=== PATIENT | female | born 1950 ===

== ENCOUNTER 2017-06-12 13:36 | Outpatient (CLI) | payer MEDICARE, MEDICAID ==
[2017-06-12 13:50] VITALS: BP 126/73
[2017-06-12] MEDS ORDERED: ISOSORBIDE MONO60 M1 PO (15:34)
[2017-06-12] MEDS ORDERED: NORCO 5-325 TA1 EACH ORAL (15:34)
[2017-06-12] MEDS ORDERED: PLAVIX75 MG ORAL (15:34)
[2017-06-12] MEDS ORDERED: METOPROLOL TART50 MG ORAL (15:34)
[2017-06-12] MEDS ORDERED: LOTENSIN20 MG ORAL (15:34)
[2017-06-12] MEDS ORDERED: COLACE100 MG ORAL (15:34)
[2017-06-12] MEDS ORDERED: VITAMIN D5000 UNI1 PO (15:34)
[2017-06-12] MEDS ORDERED: SPIRONOLACTONE25 MG ORAL (15:34)
[2017-06-12] MEDS ORDERED: GEODON20 MG ORAL (15:34)
[2017-06-12] MEDS ORDERED: DUONEB 0.5-3(2.53 ML HHN (15:34)
[2017-06-12] MEDS ORDERED: DIOVAN80 MG ORAL (15:34)
[2017-06-12] MEDS ORDERED: NEURONTIN800 MG ORAL (15:34)
[2017-06-12] MEDS ORDERED: WELLBUTRIN XL150 MG ORAL (15:34)
[2017-06-12] MEDS ORDERED: ZOLPIDEM TARTRAT5 MG ORAL (15:34)
[2017-06-12] MEDS ORDERED: HYDRALAZINE HCL10 MG ORAL (15:34)
[2017-06-12] MEDS ORDERED: MIRALAX17 G2 ORAL (15:34)
[2017-06-12] MEDS ORDERED: ROPINIROLE HCL2 MG PO (15:34)
[2017-06-12] MEDS ORDERED: LEVOFLOXACIN500 MG ORAL (15:34)
[2017-06-12] MEDS ORDERED: BENADRYL25 M3 PO (15:34)
[2017-06-12] MEDS ORDERED: ASPIRIN EC81 MG ORAL (15:34)
[2017-06-12] MEDS ORDERED: DIAZEPAM5 MG ORAL (16:04)
[2017-06-12] MEDS ORDERED: ZOFRAN8 MG ORAL (16:04)
[2017-06-12] MEDS ORDERED: CHLORDIAZEPO-A1 EACH PO (16:04)
[2017-06-12] MEDS ORDERED: DOCUSATE SODIU100 MG ORAL (16:04)
[2017-06-12] MEDS ORDERED: PANTOPRAZOLE SO40 MG ORAL (16:04)
[2017-06-12] MEDS ORDERED: MIRTAZAPINE15 M3 ORAL (16:04)
[2017-06-12] MEDS ORDERED: GABAPENTIN100 MG ORAL (16:04)
[2017-06-12] MEDS ORDERED: PRAVASTATIN SOD10 M1 ORAL (16:04)
[2017-06-12] MEDS ORDERED: METHOCARBAMOL750 MG ORAL (16:04)
[2017-06-12] MEDS ORDERED: LEXAPRO10 MG ORAL (16:04)
[2017-06-12] MEDS ORDERED: FISH OIL CAP1000 MG ORAL (16:04)
[2017-06-12] MEDS ORDERED: RANITIDINE HCL150 MG ORAL (16:04)
[2017-06-12] MEDS ORDERED: GABAPENTIN300 MG ORAL (16:04)
[2017-06-12] MEDS ORDERED: CARAFATE1 G1 ORAL (16:04)
[2017-06-12] MEDS ORDERED: ATENOLOL50 MG ORAL (16:04)
[2017-06-12] MEDS ORDERED: TRAMADOL HCL100 M2 ORAL (16:04)
[2017-06-12] MEDS ORDERED: VOLTAREN100 G1 TP (16:04)
[2017-06-12] MEDS ORDERED: RESTASIS1 EACH BOTH EYES (16:04)
[2017-06-12] MEDS ORDERED: FLECTOR1 EACH TP (16:04)
--- NOTE | 2017-06-12 16:08 | GI Initial Consult Note ---
LiliDeana Bladimir N.P. 06/12/17 1608: History of Present Illness General Date patient seen: Jun 12, 2017 Time patient seen: 15:50 Referring physician: BRYANNA Reason for Consultation: SEVERE GERD Present Illness HPI 67 year old female patient referred by Dr. Riley for evaluation of epigastric pain, severe GERD. The patient presents today with c/o of GERD, constipation, weight loss, poor appetite due to abdominal pain and N/V 3 months after her spinal fusion. She has stated she had multiple upper endoscopies performed at [facility] with unremarkable findings. In addition, she takes multiple medications for her abdominal pain, but cannot find any relief. Her last colonoscopy has been 5+ years. No signs of abuse or neglect. Patient is not fall risk. Home Meds Reported Medications Tramadol Hcl (TRAMADOL HCL) 100 Mg Tab.er.24h, 50 MG ORAL DAILY, TAB 06/12/17 Sucralfate* (CARAFATE*) 1 Gm Tablet, 1 GM ORAL FOUR TIMES A DAY, TAB 06/12/17 Cyclosporine (RESTASIS) 1 Each Droperette, 1 DROP BOTH EYES EVERY 12 HOURS, #1 EA 0 Refills 06/12/17 Ranitidine Hcl* (ZANTAC*) 150 Mg Tablet, 150 MG ORAL DAILY, TAB 06/12/17 Pravastatin Sod (PRAVASTATIN SOD) 10 Mg Tablet, 10 MG ORAL BEDTIME, TAB 06/12/17 Ondansetron Hcl* (ZOFRAN*) 8 Mg Tablet, 8 MG ORAL Q6H PRN, #4 TAB 0 Refills 06/12/17 Mirtazapine* (MIRTAZAPINE*) 15 Mg Tablet, 15 MG ORAL BEDTIME, TAB 06/12/17 Methocarbamol* (METHOCARBAMOL*) 750 Mg Tablet, 750 MG ORAL FOUR TIMES A DAY PRN , #20 TAB 0 Refills 06/12/17 Escitalopram Oxalate* (LEXAPRO*) 10 Mg Tablet, 10 MG ORAL DAILY, TAB 06/12/17 Gabapentin* (GABAPENTIN*) 300 Mg Capsule, 300 MG ORAL BEDTIME, CAP 06/12/17 Gabapentin* (GABAPENTIN*) 100 Mg Capsule, 100 MG ORAL THREE TIMES A DAY, CAP 06/12/17 Fish Oil (Fish Oil 1,000 mg Capsule) 1 Each Capsule, 1000 MG ORAL DAILY, CAP 06/12/17 Docusate Sodium* (DOCUSATE SODIUM*) 100 Mg Capsule, 100 MG ORAL THREE TIMES A DAY, CAP 06/12/17 Diclofenac Epolamine (Flector) 1 Each Patch.td12, 1 EACH TP, PATCH 06/12/17 Diclofenac Sodium (VOLTAREN) Unknown Strength Gel..gram., TP, GM 06/12/17 Diazepam* (DIAZEPAM*) 5 Mg Tablet, 5 MG ORAL Q6H PRN, #30 TAB 0 Refills 06/12/17 Pantoprazole* (PANTOPRAZOLE*) 40 Mg Tablet.dr, 40 MG ORAL DAILY, TAB 06/12/17 Amitrip Hcl/Chlordiazepoxide (CHLORDIAZEPO-AMITRIPTYL 5-12.5) 1 Each Tablet, 1 EACH PO, TAB 06/12/17 Atenolol* (TENORMIN*) 50 Mg Tablet, 50 MG ORAL DAILY, TAB 06/12/17 Med list reviewed/reconciled: Yes Allergies: Coded Allergies: ACETAMINOPHEN (Unverified Allergy, Severe, 06/12/17) CELECOXIB (Unverified Allergy, Severe, 06/12/17) DICLOFENAC (Unverified Allergy, Severe, 06/12/17) IBUPROFEN (Unverified Allergy, Severe, 06/12/17) LATEX (Unverified Allergy, Severe, 06/12/17) red and itching OXYCODONE (Unverified Allergy, Severe, 06/12/17) PREGABALIN (Unverified Allergy, Severe, 06/12/17) ROSUVASTATIN (Unverified Allergy, Severe, 06/12/17) FENTANYL (Verified Allergy, Unknown, 06/12/17) HYDROMORPHONE (Verified Allergy, Unknown, 06/12/17) TRAMADOL (Verified Allergy, Unknown, 06/12/17) Patient History History Provided By: Patient, Medical Record PMH Narrative GERD Depression HTN IBS constipation HLD Past Surgical History: Spinal Fusion 2017 Family History Narrative DM Heart Disease HTN Social History: Denies: smoking, alcohol use, drug use, other Review of Systems All Other Systems: negative except mentioned in HPI Physical Exam 97.7 BP 126/73 P 55 97 RA WT 157.4 lbs Sp02 EP Interpretation: reviewed, normal General Appearance: well appearing, no apparent distress, alert Head: normocephalic EENT: PERRL/EOMI, normal ENT inspection Neck: supple Respiratory: normal breath sounds, no respiratory distress Cardiovascular: normal rate Gastrointestinal: normal inspection, non tender, soft, normal bowel sounds, non -distended Rectal: deferred Genitourinary: no CVA tenderness Musculoskeletal: normal inspection, back normal Neurologic: normal inspection, alert, oriented x3, responsive Psychiatric: normal inspection, judgement/insight normal, memory normal Skin: normal inspection, normal color, no rash, warm/dry, palpation normal, well hydrated Lymphatic: normal inspection, no adenopathy GI: Plan Problems: (1) GERD (gastroesophageal reflux disease) (2) Weight loss (3) Nausea & vomiting (4) H/O spinal fusion (5) IBS (irritable bowel syndrome) (6) Depression (7) HTN (hypertension) Plan Protonix BID add baclofen dc creon and carafate RTC x 2 weeks Needs colonoscopy when stable Seen with Dr. Abel. Thank you for this patient referral. NERY ABEL 06/13/17 1021: History of Present Illness Present Illness Home Meds Reported Medications Tramadol Hcl (TRAMADOL HCL) 100 Mg Tab.er.24h, 50 MG ORAL DAILY, TAB 06/12/17 Sucralfate* (CARAFATE*) 1 Gm Tablet, 1 GM ORAL FOUR TIMES A DAY, TAB 06/12/17 Cyclosporine (RESTASIS) 1 Each Droperette, 1 DROP BOTH EYES EVERY 12 HOURS, #1 EA 0 Refills 06/12/17 Ranitidine Hcl* (ZANTAC*) 150 Mg Tablet, 150 MG ORAL DAILY, TAB 06/12/17 Pravastatin Sod (PRAVASTATIN SOD) 10 Mg Tablet, 10 MG ORAL BEDTIME, TAB 06/12/17 Ondansetron Hcl* (ZOFRAN*) 8 Mg Tablet, 8 MG ORAL Q6H PRN, #4 TAB 0 Refills 06/12/17 Mirtazapine* (MIRTAZAPINE*) 15 Mg Tablet, 15 MG ORAL BEDTIME, TAB 06/12/17 Methocarbamol* (METHOCARBAMOL*) 750 Mg Tablet, 750 MG ORAL FOUR TIMES A DAY PRN , #20 TAB 0 Refills 06/12/17 Escitalopram Oxalate* (LEXAPRO*) 10 Mg Tablet, 10 MG ORAL DAILY, TAB 06/12/17 Gabapentin* (GABAPENTIN*) 300 Mg Capsule, 300 MG ORAL BEDTIME, CAP 06/12/17 Gabapentin* (GABAPENTIN*) 100 Mg Capsule, 100 MG ORAL THREE TIMES A DAY, CAP 06/12/17 Fish Oil (Fish Oil 1,000 mg Capsule) 1 Each Capsule, 1000 MG ORAL DAILY, CAP 06/12/17 Docusate Sodium* (DOCUSATE SODIUM*) 100 Mg Capsule, 100 MG ORAL THREE TIMES A DAY, CAP 06/12/17 Diclofenac Epolamine (Flector) 1 Each Patch.td12, 1 EACH TP, PATCH 06/12/17 Diclofenac Sodium (VOLTAREN) Unknown Strength Gel..gram., TP, GM 06/12/17 Diazepam* (DIAZEPAM*) 5 Mg Tablet, 5 MG ORAL Q6H PRN, #30 TAB 0 Refills 06/12/17 Pantoprazole* (PANTOPRAZOLE*) 40 Mg Tablet.dr, 40 MG ORAL DAILY, TAB 06/12/17 Amitrip Hcl/Chlordiazepoxide (CHLORDIAZEPO-AMITRIPTYL 5-12.5) 1 Each Tablet, 1 EACH PO, TAB 06/12/17 Atenolol* (TENORMIN*) 50 Mg Tablet, 50 MG ORAL DAILY, TAB 06/12/17 Allergies: Coded Allergies: ACETAMINOPHEN (Unverified Allergy, Severe, 06/12/17) CELECOXIB (Unverified Allergy, Severe, 06/12/17) DICLOFENAC (Unverified Allergy, Severe, 06/12/17) IBUPROFEN (Unverified Allergy, Severe, 06/12/17) LATEX (Unverified Allergy, Severe, 06/12/17) red and itching OXYCODONE (Unverified Allergy, Severe, 06/12/17) PREGABALIN (Unverified Allergy, Severe, 06/12/17) ROSUVASTATIN (Unverified Allergy, Severe, 06/12/17) FENTANYL (Verified Allergy, Unknown, 06/12/17) HYDROMORPHONE (Verified Allergy, Unknown, 06/12/17) TRAMADOL (Verified Allergy, Unknown, 06/12/17) GI: Plan Plan The patient was seen and examined at bedside and all new and available data was reviewed in the patients chart. I agree with the above findings, impression and plan. (Patient seen earlier today. Signature stamp does not reflect patient encounter time.). - MD Lili Vallejo Anh Bladimir oMrales Jun 12, 2017 16:08 NERY ABEL Jun 13, 2017 10:21
== END 2017-06-12 14:10 | disposition home or self-care (01) ==
LOC: PAN 13:36
DX: K21.9 Gastro-esophageal reflux disease without esophagitis (principal); R63.4 Abnormal weight loss; R11.2 Nausea with vomiting, unspecified; Z98.1 Arthrodesis status; K58.9 Irritable bowel syndrome, unspecified; F32.9 Major depressive disorder, single episode, unspecified; I10 Essential (primary) hypertension; E78.5 Hyperlipidemia, unspecified; Z83.3 Family history of diabetes mellitus; Z82.49 Family history of ischemic heart disease and other diseases of the circulatory system; Z88.6 Allergy status to analgesic agent; Z91.040 Latex allergy status; Z88.8 Allergy status to other drugs, medicaments and biological substances; K59.00 Constipation, unspecified
CPT/HCPCS: 99213

== ENCOUNTER 2017-07-01 10:20 | Outpatient (CLI) | payer MEDICARE, MEDICAID ==
[~2017-07-01 10:20] MED LIST: ASPIRIN EC81 MG ORAL; ATENOLOL50 MG ORAL; BENADRYL25 M3 PO; CARAFATE1 G1 ORAL; CHLORDIAZEPO-A1 EACH PO; COLACE100 MG ORAL; DIAZEPAM5 MG ORAL; DIOVAN80 MG ORAL; DOCUSATE SODIU100 MG ORAL; DUONEB 0.5-3(2.53 ML HHN; FISH OIL CAP1000 MG ORAL; FLECTOR1 EACH TP; GABAPENTIN100 MG ORAL; GABAPENTIN300 MG ORAL; GEODON20 MG ORAL; HYDRALAZINE HCL10 MG ORAL; ISOSORBIDE MONO60 M1 PO; LEVOFLOXACIN500 MG ORAL; LEXAPRO10 MG ORAL; LOTENSIN20 MG ORAL; METHOCARBAMOL750 MG ORAL; METOPROLOL TART50 MG ORAL; MIRALAX17 G2 ORAL; MIRTAZAPINE15 M3 ORAL; NEURONTIN800 MG ORAL; NORCO 5-325 TA1 EACH ORAL; PANTOPRAZOLE SO40 MG ORAL; PLAVIX75 MG ORAL; PRAVASTATIN SOD10 M1 ORAL; RANITIDINE HCL150 MG ORAL; RESTASIS1 EACH BOTH EYES; ROPINIROLE HCL2 MG PO; SPIRONOLACTONE25 MG ORAL; TRAMADOL HCL100 M2 ORAL; VITAMIN D5000 UNI1 PO; VOLTAREN100 G1 TP; WELLBUTRIN XL150 MG ORAL; ZOFRAN8 MG ORAL; ZOLPIDEM TARTRAT5 MG ORAL
[2017-07-01 10:46] VITALS: BP 133/76
[2017-07-01] MEDS ORDERED: MIRALAX17 G2 ORAL (10:49)
[2017-07-01] MEDS ORDERED: MAALOX MAXIMUM355 M1 PO (14:23)
[2017-07-01] MEDS ORDERED: ATIVAN1 MG ORAL (14:23)
[2017-07-01] MEDS ORDERED: AMERICAINE28 G1 TP (14:29)
--- NOTE | 2017-07-01 16:45 | GI Progress Note ---
Assessment/Plan Problems: (1) Nausea & vomiting ICD Codes: R11.2 - Nausea with vomiting, unspecified SNOMED: 00704655 (2) IBS (irritable bowel syndrome) ICD Codes: K58.9 - Irritable bowel syndrome without diarrhea SNOMED: 93807557 (3) Weight loss ICD Codes: R63.4 - Abnormal weight loss SNOMED: 03693759, 766721073 (4) H/O spinal fusion ICD Codes: Z98.1 - Arthrodesis status SNOMED: 73743061, [id number] (5) GERD (gastroesophageal reflux disease) ICD Codes: K21.9 - Gastro-esophageal reflux disease without esophagitis SNOMED: 496853002 Status: stable Status Narrative Seen with Dr. Moraes. Assessment/Plan patient have daily BM's weight loss of 8-10 lbs per patient has had CT done at [facility] [place] patient send to ER for anxiety carafate librax refusing colonoscopy at this time, recommend when stable. Subjective Subjective epigastric pain constipation, not using miralax much N/V decreased in appetite taking protonix 40mg BID couldn't tolerate baclofen Objective Last 24 Hour Vital Signs Date Time Temp Pulse Resp B/P (MAP) Pulse Ox O2 Delivery O2 Flow Rate FiO2 07/01/17 10:46 97.4 62 16 133/76 97 97.4 General Appearance: WD/WN, no apparent distress, alert Cardiovascular: normal rate Respiratory/Chest: normal breath sounds, no respiratory distress Abdominal Exam: normal bowel sounds, non tender, soft Extremities: normal range of motion, non-tender Deana Pearson N.PDali Jul 01, 2017 16:45
== END 2017-07-01 10:52 | disposition home or self-care (01) ==
LOC: PAN 10:20
DX: K21.9 Gastro-esophageal reflux disease without esophagitis (principal); Z98.1 Arthrodesis status; R63.4 Abnormal weight loss; K58.9 Irritable bowel syndrome, unspecified; R11.2 Nausea with vomiting, unspecified; K59.00 Constipation, unspecified
CPT/HCPCS: 99213

== ENCOUNTER 2017-07-01 11:24 | Emergency (ER) | payer MEDICARE, MEDICAID ==
[~2017-07-01] VITALS: Ht 162.6 cm; Wt 72.6 kg
[2017-07-01] MEDS ORDERED: Mylanta II UD 30ml ORAL ONE (12:00)
[2017-07-01] MEDS ORDERED: Sodium Chloride 500ML 550 ML IV SCH (12:00)
[2017-07-01] MEDS ORDERED: Hydromorphone 0.5mg/0.5ml inj IVP ONE (12:00)
[2017-07-01 12:11] LABS: APPEARANCE,URINE CLEAR; BILIRUBIN, URINE NEGATIVE (NEGATIVE); COLOR,URINE PALE YELLOW; GLUCOSE, URINE (UA) NEGATIVE (NEGATIVE); KETONES,URINE NEGATIVE (NEGATIVE); LEUKOCYTE ESTERASE ,URINE NEGATIVE (NEGATIVE); NITRITE,URINE NEGATIVE (NEGATIVE); PH,URINE 7 (4.5-8.0); PROTEIN,URINE NEGATIVE (NEGATIVE); UROBILINOGEN,URINE NORMAL MG/DL (0.0-1.0)
[2017-07-01 12:50] LABS: BASOPHILS % (AUTO) 0.7 % (0.0-2.0); EOSINOPHILS % (AUTO) 0.4 % (0.0-3.0); HEMOGLOBIN 14.6 G/DL (12.0-16.0); LYMPHOCYTES % (AUTO) 36.9 % (20.0-45.0); MEAN CORPUSCULAR VOLUME 88 FL (80-99); MONOCYTES % (AUTO) 7.2 % (1.0-10.0); NEUTROPHILS % (AUTO) 54.7 % (45.0-75.0); PLATELET COUNT 247 K/UL (150-450); RED BLOOD COUNT 4.76 M/UL (4.20-5.40); RED CELL DISTRIBUTION WIDTH 11.1 % (11.6-14.8); WHITE BLOOD COUNT 6.6 K/UL (4.8-10.8)
[2017-07-01 12:55] LABS: ANION GAP 7 mmol/L (5-15); BLOOD UREA NITROGEN 9 mg/dL (7-18); CALCIUM 9.4 MG/DL (8.5-10.1); CARBON DIOXIDE 27 MMOL/L (21-32); CHLORIDE 100 MMOL/L (98-107); CREATININE 0.8 MG/DL (0.55-1.30); POTASSIUM 3.9 MMOL/L (3.5-5.1); SODIUM 134 MMOL/L (136-145)
[2017-07-01 13:00] LABS: ALANINE AMINOTRANSFERASE 21 U/L (12-78); ALBUMIN 3.7 G/DL (3.4-5.0); ALBUMIN/GLOBULIN RATIO 1.2 (1.0-2.7); ALKALINE PHOSPHATASE 59 U/L (46-116); ASPARTATE AMINO TRANSFERASE 17 U/L (15-37); BILIRUBIN,TOTAL 0.5 MG/DL (0.2-1.0)
[2017-07-01 13:37] VITALS: BP 110/63
--- NOTE | 2017-07-01 14:19 | Emergency Room Report ---
History of Present Illness General Chief Complaint: Abdominal Pain Source: Patient, Medical Record Present Illness HPI Patient presents with anxiety and difficulty eating and swallowing. She was seen at Dr. Moraes's office and sent over here. She asked for a shot to help her with her anxiety and he said he didn't have anything that could help. She' s complaining about abdominal pain. The abdominal pain is epigastric. She states she has not been eating because of the anxiety and pain. Pain rated 8/10 , burning, epigastric and not radiating. Dr. Moraes states she take protonix twice a day. She denies melena or rectal bleeding. No dysuria. Because she is not eating, she feels weak. Although she lists Dilaudid in her allergies, she is asking for this saying that morphine will not work. The patient just was hospitalized at [facility] and had a CT abdomen done that was reportedly normal. She feels a burning in her stomach area and has pain. There is no vomiting or diarrhea. She moves her bowels in the morning. She has painful hemorrhoids. Per her meds she had been on NSAIDs. She is unclear what she currently takes. In the past she was also treated with anti-depressants. She is not suicidal. Also in the past she had a prescription for Valium. She has none now. Dr. Moraes was trying to arrange for outpatient psychiatric evaluation, however has been unable to do so. No chest pain, dyspnea, rashes, joint pain, headache. Allergies: Coded Allergies: ACETAMINOPHEN (Unverified Allergy, Severe, 06/12/17) CELECOXIB (Unverified Allergy, Severe, 06/12/17) DICLOFENAC (Unverified Allergy, Severe, 06/12/17) IBUPROFEN (Unverified Allergy, Severe, 06/12/17) LATEX (Unverified Allergy, Severe, 06/12/17) red and itching OXYCODONE (Unverified Allergy, Severe, 06/12/17) PREGABALIN (Unverified Allergy, Severe, 06/12/17) ROSUVASTATIN (Unverified Allergy, Severe, 06/12/17) FENTANYL (Verified Allergy, Unknown, 06/12/17) HYDROMORPHONE (Verified Allergy, Unknown, 06/12/17) TRAMADOL (Verified Allergy, Unknown, 06/12/17) Patient History Past Medical History: see triage record Social History: Denies: smoking, alcohol use, drug use Social History Narrative came by [employer], lives by herself Reviewed Nursing Documentation: PMH: Agreed; PSxH: Agreed Nursing Documentation-PMH Past Medical History: No History, Except For Hx Cardiac Problems: Yes Hx Hypertension: Yes Hx Cancer: No Hx Gastrointestinal Problems: Yes Hx Neurological Problems: No Review of Systems All Other Systems: negative except mentioned in HPI Physical Exam Vital Signs Date Time Temp Pulse Resp B/P (MAP) Pulse Ox O2 Delivery O2 Flow Rate FiO2 07/01/17 11:29 97.9 61 18 133/86 95 Room Air 97.9 Sp02 EP Interpretation: reviewed, normal General Appearance: well appearing, no apparent distress, GCS 15, other - anxious Head: normocephalic Eyes: bilateral eye normal inspection, bilateral eye PERRL ENT: moist mucus membranes Neck: supple Respiratory: lungs clear, normal breath sounds Cardiovascular #1: regular rate, rhythm Cardiovascular #2: 2+ radial (R) Gastrointestinal: normal inspection, normal bowel sounds, no mass, non- distended, no guarding, no rebound, tenderness - epigastric Musculoskeletal: back normal, gait/station normal, normal range of motion Neurologic: alert, oriented x3, grossly normal Psychiatric: no suicidal/homicidal ideation, anxious Skin: normal inspection, warm/dry Medical Decision Making Diagnostic Impression: Primary Impression: Anxiety Additional Impression: Abdominal pain Qualified Codes: R10.13 - Epigastric pain ER Course Patient presents with anxiety and epigastric pain. DDX: AMI, gastritis, pancreatitis, PUD, IBS, constipation amongst others. Evaluation with EKG, Abd films and labs. Treatment with gentle IV hydration (patient not appear dehydrated), pepcid and analgesia. EKG without injury. Abd films refused by patient (states CT recently done and "normal"). Labs normal CBC, CMP, UA. Discussed with Dr. Moraes. The patient was improved. He stated he wanted to observe the patient at home as opposed to admitting the patient. I discussed this with the patient. She asked to be admitted to the hospital. I told labs are normal and her doctor wanted to observe her at home. I stated I believe my medicines will help her at home and if she is not doing well to return to the emergency department. Patient ambulatory with decreased pain. Patient is stable for outpatient observation and treatment. Laboratory Tests Test 07/01/17 11:48 07/01/17 12:12 Urine Color Pale yellow Urine Appearance Clear Urine pH 7 (4.5-8.0) Urine Specific [place] 1.010 (1.005-1.035) Urine Protein Negative (NEGATIVE) Urine Glucose (UA) Negative (NEGATIVE) Urine Ketones Negative (NEGATIVE) Urine Occult Blood Negative (NEGATIVE) Urine Nitrite Negative (NEGATIVE) Urine Bilirubin Negative (NEGATIVE) Urine Urobilinogen Normal MG/DL (0.0-1.0) Urine Leukocyte Esterase Negative (NEGATIVE) White Blood Count 6.6 K/UL (4.8-10.8) Red Blood Count 4.76 M/UL (4.20-5.40) Hemoglobin 14.6 G/DL (12.0-16.0) Hematocrit 42.0 % (37.0-47.0) Mean Corpuscular Volume 88 FL (80-99) Mean Corpuscular Hemoglobin 30.6 PG (27.0-31.0) Mean Corpuscular Hemoglobin Concent 34.6 G/DL (32.0-36.0) Red Cell Distribution Width 11.1 % (11.6-14.8) L Platelet Count 247 K/UL (150-450) Mean Platelet Volume 5.8 FL (6.5-10.1) L Neutrophils (%) (Auto) 54.7 % (45.0-75.0) Lymphocytes (%) (Auto) 36.9 % (20.0-45.0) Monocytes (%) (Auto) 7.2 % (1.0-10.0) Eosinophils (%) (Auto) 0.4 % (0.0-3.0) Basophils (%) (Auto) 0.7 % (0.0-2.0) Prothrombin Time 10.8 SEC (9.30-11.50) Prothrombin Time INR 1.0 (0.9-1.1) PTT 29 SEC (23-33) Sodium Level 134 MMOL/L (136-145) L Potassium Level 3.9 MMOL/L (3.5-5.1) Chloride Level 100 MMOL/L (98-107) Carbon Dioxide Level 27 MMOL/L (21-32) Anion Gap 7 mmol/L (5-15) Blood Urea Nitrogen 9 mg/dL (7-18) Creatinine 0.8 MG/DL (0.55-1.30) Estimate Glomerular Filtration Rate > 60 mL/min (>60) Glucose Level 96 MG/DL (74-106) Calcium Level 9.4 MG/DL (8.5-10.1) Total Bilirubin 0.5 MG/DL (0.2-1.0) Aspartate Amino Transferase (AST) 17 U/L (15-37) Alanine Aminotransferase (ALT) 21 U/L (12-78) Alkaline Phosphatase 59 U/L (46-116) Troponin I 0.000 ng/mL (0.000-0.056) Total Protein 6.8 G/DL (6.4-8.2) Albumin 3.7 G/DL (3.4-5.0) Globulin 3.1 g/dL Albumin/Globulin Ratio 1.2 (1.0-2.7) Lipase 96 U/L (73-393) EKG Diagnostic Results Rate: bradycardiac Rhythm: NSR ST Segments: no acute changes Rhythm Strip Diag. Results EP Interpretation: yes Rhythm: no PVC's, no ectopy, other - jr Other X-Ray Diagnostic Results Other X-Ray Diagnostic Results : X-Ray ordered: patient refused abd film Last Vital Signs Date Time Temp Pulse Resp B/P (MAP) Pulse Ox O2 Delivery O2 Flow Rate FiO2 07/01/17 15:14 98.2 61 14 116/63 99 Room Air 98.2 Status: improved Disposition: HOME, SELF-CARE Condition: Improved Scripts Benzocaine (AMERICAINE) 28 Gm Oint...g. 1 APPL TP BID, #30 GM Prov: Gilmer Atkinson M.D. 07/01/17 Mag Hydrox/Al Hydrox/Simeth (MAALOX MAXIMUM STRENGTH SUSP) 355 Ml Oral.susp 30 ML PO Q6HR PRN for abdominal pain, #240 ML 1 Refill Prov: Gilmer Atkinson M.D. 07/01/17 Lorazepam* (ATIVAN*) 1 Mg Tablet 1 MG ORAL THREE TIMES A DAY, #8 TAB Prov: Gilmer Atkinson M.D. 07/01/17 Referrals: NERY MORAES (PCP) Gilmer Atkinson M.D. Jul 01, 2017 14:19
[2017-07-01] MEDS ORDERED: MAALOX MAXIMUM355 M1 PO (14:23)
[2017-07-01] MEDS ORDERED: ATIVAN1 MG ORAL (14:23)
[2017-07-01] MEDS ORDERED: AMERICAINE28 G1 TP (14:29)
[2017-07-01 15:14] VITALS: BP 116/63
--- NOTE | 2017-07-02 17:25 | Cardiology Report ---
APPROVED REPORT EKG Measurement Heart [id number] KS [id number] [id number] Sinus bradycardia T wave abnormality, consider anterolateral ischemia Abnormal ECG
== END 2017-07-01 15:14 | disposition home or self-care (01) ==
LOC: EMR 12:10
DX: F41.9 Anxiety disorder, unspecified (principal); R10.13 Epigastric pain; Z88.8 Allergy status to other drugs, medicaments and biological substances; Z91.040 Latex allergy status; I10 Essential (primary) hypertension; R00.2 Palpitations
CPT/HCPCS: 36415; 80053; 81003; 83690; 84484; 85025; 85610; 85730; 93005; 96374; 96375; 99284; J1170; J2405; S0028